=== PATIENT | female | born 1965 | race Hispanic/Latino ===

== ENCOUNTER 2018-03-25 06:18 | Emergency (ER) | payer OTHER ==
[~2018-03-25] VITALS: Ht 175.3 cm; Wt 104.3 kg
[~2018-03-25 06:18] MED LIST: LISINOPRIL20 MG PO; VESICARE5 MG PO
--- OUTSIDE RECORDS SUMMARY | 2018-03-25 06:21 | XMS REPORT ---
Author Author [facility] Address Unknown Phone Unavailable Care Team Providers Care Supervisor Mails Name Role Phone Verónica SNYDER Unavailable Unavailable Problems This patient has no known problems. Allergies, Adverse Reactions, Alerts This patient has no known allergies or adverse reactions. Medications This patient has no known medications. Results Test Description Test Time Test Comments Text Results Atomic Results Result Comments CT ABDOMEN/PELVIS WO [place] [address] Patient Name: LELE DE SOUZA MR #: [id number] : 1965 Age/Sex: 51/F Req #: [id number] [facility] Physician: Ordered by: KHADAR SNYDER MD Report #: [id number] Location: ER Room/Bed: Procedure: [id number] CT/CT ABDOMEN/PELVIS WO Exam Date: 11/27/16 Exam Time: 09 REPORT STATUS: Signed PROCEDURE: CT ABDOMEN AND PELVIS WITHOUT CONTRAST TECHNIQUE: The abdomen and pelvis were scanned utilizing a multidetector helical scanner from the diaphragm to the lesser trochanter. No oral or intravenous contrast was administered per referring physician request. Renal stone protocol. Coronal and sagittal multiplanar reformations were obtained. COMPARISON: None. INDICATIONS: LEFT FLANK PAIN FINDINGS: ABSENCE OF INTRAVENOUS CONTRAST DECREASES SENSITIVITY FOR DETECTION OF FOCAL LESIONS AND VASCULAR PATHOLOGY. LOWER THORAX: Subsegmental atelectasis medially within left lung base. HEPATOBILIARY: No focal hepatic lesion or intrahepatic biliary ductal dilatation. The gallbladder is unremarkable. SPLEEN: No splenomegaly. PANCREAS: No focal masses or ductal dilatation. ADRENALS: No adrenal nodules. KIDNEYS/URETERS: No hydronephrosis. No renal, ureteral, or bladder calculi. No solid or cystic renal mass lesion within the limitation of a noncontrast examination. PELVIC ORGANS/BLADDER: The urinary bladder is incompletely distended but otherwise unremarkable. No adnexal mass. Tubal ligation clips. PERITONEUM / RETROPERITONEUM: No free air or fluid. LYMPH NODES: No pelvic sidewall, retroperitoneal, or mesenteric lymphadenopathy. VESSELS: The abdominal aorta is non-aneurysmal. Otherwise limited evaluation in the absence of intravenous contrast. GI TRACT: The large bowel shows no evidence of distention or wall thickening. There are a few diverticula scattered along the course of the descending and sigmoid colon, without evidence of diverticulitis. The appendix is normal. There is no small bowel dilatation to suggest obstruction. A gastric band apparatus encircles the mid gastric body. The reservoir lies in the subcutaneous fat left paramedian supraumbilical region. Intact tubing lies within the left side of the peritoneal cavity. The proximal gastric body and gastroesophageal junction are herniated above the left hemidiaphragm, best appreciated on coronal image 36. There is concentric thickening of the partially visualized distal esophageal wall. BONES AND SOFT TISSUES: No focal soft tissue abnormalities with the exception of a small fat containing left inguinal hernia and small fat containing umbilical hernia. No osseous destructive lesions.. IMPRESSION: No acute intra-abdominal or pelvic CT abnormalities. No CT evidence of urolithiasis. Laparoscopic band apparatus encircles the midportion of the gastric body, with a large hiatal hernia containing the gastroesophageal junction and proximal stomach. Nonspecific concentric thickening of the distal esophageal wall may be inflammatory in nature. Mild large bowel diverticulosis without findings of diverticulitis. Dictated by: Aubrey Muñoz M.D. on 11/27/2016 at 10:23 Electronically approved by: Aubrey Muñoz M.D. on 11/27/2016 at 10:23 Dictated By: AUBREY MUÑOZ MD 1023 Transcribed By: CHARLY on 11/27/16 1023 COPY TO: KHADAR SNYDER MD
--- NOTE | 2018-03-25 07:32 | Diagnostic Imaging Report ---
EXAMINATION: CXR 1 W - HOP INDICATION: Shortness of breath. COMPARISON: None FINDINGS: TUBES and LINES: None. LUNGS: Lungs are well inflated. There is no evidence of pneumonia or pulmonary edema. Round opacity projecting over the right lower lung likely represents nipple shadow. PLEURA: No pleural effusion or pneumothorax. HEART AND MEDIASTINUM: The cardiomediastinal silhouette is unremarkable. BONES AND SOFT TISSUES: No acute osseous lesion. Soft tissues are unremarkable. UPPER ABDOMEN: No free air under the diaphragm. IMPRESSION: No acute radiographic abnormality. Signed by: Dr. Jose Juan Cam MD on 03/25/2018 7:28 AM
--- NOTE | 2018-03-25 07:45 | NUR ---
REPORT FROM AHMET PARRY ALL QUESTIONS ANSWERED
--- NOTE | 2018-03-25 08:29 | NUR ---
PT RESTING, VITAL SIGNS STABLE, PT VOICES NO COMPLAINTS AT THIS TIME
== END 2018-03-25 08:00 | disposition home or self-care (01) ==
LOC: FSED 06:18
DX: R06.09 Other forms of dyspnea (principal); R00.2 Palpitations; E87.6 Hypokalemia; K52.9 Noninfective gastroenteritis and colitis, unspecified; R94.31 Abnormal electrocardiogram [ECG] [EKG]
CPT/HCPCS: 71045; 80053; 82553; 84484; 85025; 85379; 93005; 99284

== ENCOUNTER 2018-05-11 22:06 | Emergency (ER) | payer OTHER ==
[~2018-05-11] VITALS: Ht 175.3 cm; Wt 104.3 kg
[2018-05-11] MEDS ORDERED: ENALAPRILAT IV INJ 1.25 MG/ML VIAL IV STA (22:32)
[2018-05-11] MEDS ORDERED: ONDANSETRON HCL INJ 2MG/ML 2ML 2 MG/ML VIAL IV ONE (22:45)
[2018-05-11] MEDS ORDERED: KETOROLAC TROMETHAMINE 30 MG/ML VIAL IV ONE (22:45)
[2018-05-11] MEDS ORDERED: FAMOTIDINE 20 MG/2 ML VIAL IV ONE (22:45)
[2018-05-11] MEDS ORDERED: DEXAMETHASONE SOD PHOS 10 MG/1 ML VIAL IV ONE (22:45)
[2018-05-11] MEDS ORDERED: CLONIDINE HCL 0.2 MG TAB PO ONE (23:15)
--- NOTE | 2018-05-11 23:33 | Diagnostic Imaging Report ---
EXAMINATION: Head CT without contrast. HISTORY:Headache. COMPARISON:None. TECHNIQUE: Multidetector axial images were obtained from the foramen magnum to the vertex without contrast. The images were reconstructed using brain and bone algorithms. Thin section brain images were reformatted into coronal and sagittal planes. Dose modulation, iterative reconstruction, and/or weight based adjustment of the mA/kV was utilized to reduce the radiation dose to as low as reasonably achievable. Intravenous contrast: None IMAGE QUALITY: Suboptimal evaluation due to motion artifacts. FINDINGS: Skull/scalp: No lytic or blastic. lesions. No surgical changes. Parenchyma: Nonspecific few, scattered supratentorial white matter hypodensity are likely related to small vessel ischemic changes. No acute hemorrhage, mass or acute major vascular territorial infarct. Arteries: No density suggestive of thrombosis. Dural sinuses: No abnormal density suggestive of thrombosis. Ventricles: No hydrocephalus or displacement. Extra-axial spaces: No abnormal density. Brain volume: Mild generalized cerebral volume loss. Craniocervical junction: No mass, Chiari malformation, or basilar invagination. Sella: No mass. Paranasal/mastoid sinuses: Imaged portions unremarkable. IMPRESSION: No acute intracranial abnormality. Mild generalized cerebral volume loss and mild supratentorial white matter microvascular ischemic changes. Signed by: Dr. Shaniqua Foote M.D. on 05/11/2018 11:30 PM
== END 2018-05-12 00:43 | disposition home or self-care (01) ==
LOC: FSED 22:06
DX: G44.211 Episodic tension-type headache, intractable (principal); I10 Essential (primary) hypertension; Z98.84 Bariatric surgery status
CPT/HCPCS: 36415; 70450; 80053; 81003; 85025; 85651; 99283

== ENCOUNTER 2018-06-03 23:39 | Emergency (ER) | payer OTHER ==
[~2018-06-03] VITALS: Ht 175.3 cm; Wt 104.3 kg
--- OUTSIDE RECORDS SUMMARY | 2018-06-03 23:42 | XMS REPORT | Continuity of Care Document ---
Author Author [facility] Address Unknown Phone Unavailable Problems Problem Status Onset Date Classification Date Reported Comments Source Medications Medication Details Route Status Patient Instructions Ordering Provider Order Date Source Lisinopril (Prinavil / Zestril) 20 Mg Tablet Daily Active [facility] Solifenacin Succinate (Vesicare) 5 Mg Tablet Daily Active [facility] Allergies, Adverse Reactions, Alerts Substance Category Reaction Severity Reaction type Status Date Reported Comments Source Immunizations Immunization Date Given Site Status Last Updated Comments Source Results Order Name Results Value Reference Range Date Interpretation Comments Source Vital Signs Vital Sign Value Date Comments Source Encounters Location Location Details Encounter Type Encounter Number Reason For Visit Attending Provider ADM Date DC Date Status Source Departed Emergency Room [id number] RANDY HUSTON MD 03/25/2018 03/25/2018 [facility] Departed Emergency Room [id number] GISELE DELCID MD 05/11/2018 05/12/2018 [facility] Procedures Procedure Code Date Perfomer Comments Source
== END 2018-06-04 02:27 | disposition home or self-care (01) ==
LOC: FSED 23:39
DX: I10 Essential (primary) hypertension (principal); G44.52 New daily persistent headache (NDPH); F95.8 Other tic disorders; R31.21 Asymptomatic microscopic hematuria
CPT/HCPCS: 36415; 81003; 82948; 99282

== ENCOUNTER 2020-04-15 11:12 | Emergency (ER) | payer BC, OTHER ==
[~2020-04-15] VITALS: Ht 175.3 cm; Wt 99.3 kg
[2020-04-15] MEDS ORDERED: MELOXICAM7.5 MG PO (11:54)
[2020-04-15] MEDS ORDERED: RAMIPRIL5 MG PO (11:54)
[2020-04-15] MEDS ORDERED: TETRACAINE HCL 0.5% OPTH SOLN 4 ML BTL OP ONE (12:30)
[2020-04-15] MEDS ORDERED: TETRACAINE HCL 0.5% OPTH SOLN 4 ML BTL ONE (12:33)
[2020-04-15] MEDS ORDERED: ULTRAM 50MG50 MG PO (12:51)
[2020-04-15 13:19] VITALS: BP 154/80
== END 2020-04-15 13:10 | disposition home or self-care (01) ==
LOC: FSED 11:41
DX: H11.31 Conjunctival hemorrhage, right eye (principal); R51.9 Headache, unspecified; I10 Essential (primary) hypertension; M25.552 Pain in left hip; Z98.84 Bariatric surgery status
CPT/HCPCS: 99283

== ENCOUNTER 2020-05-04 13:57 | Outpatient (RCR) | payer BC ==
[~2020-05-04 13:57] MED LIST changes: +MELOXICAM7.5 MG PO; +RAMIPRIL5 MG PO; +ULTRAM 50MG50 MG PO
== END 2020-05-07 ==
LOC: PT 13:57
PROVIDERS: ATTEND Specialist
DX: M70.62 Trochanteric bursitis, left hip (principal)

== ENCOUNTER 2020-06-06 11:00 | Outpatient (RCR) | payer BC | END 2020-06-07 | LOC: PT 11:00 | PROVIDERS: ATTEND Specialist | DX: M70.62 Trochanteric bursitis, left hip (principal) ==

== ENCOUNTER 2020-06-20 10:56 | Outpatient (RCR) | payer BC | END 2020-07-07 | LOC: PT 10:56 | PROVIDERS: ATTEND Specialist | DX: M70.62 Trochanteric bursitis, left hip (principal) | CPT/HCPCS: 97139 ==